=== PATIENT | female | born 1980 | race Asian ===

== ENCOUNTER 2021-05-23 14:20 | Emergency (ER) | payer BC ==
[~2021-05-23] VITALS: Ht 149.9 cm; Wt 59.0 kg
[2021-05-23 15:50] VITALS: BP 105/66
--- NOTE | 2021-05-23 16:15 | NUR ---
FINISH REMOVER AT BEDSIDE
--- NOTE | 2021-05-23 17:24 | NUR ---
Patient discharged to home in stable condition. Written and verbal after care instructions given. Patient verbalizes understanding of instruction.
== END 2021-05-23 17:25 | disposition home or self-care (01) ==
LOC: ER 14:20
DX: S16.1XXA Strain of muscle, fascia and tendon at neck level, initial encounter (principal); J45.909 Unspecified asthma, uncomplicated; V43.52XA Car driver injured in collision with other type car in traffic accident, initial encounter; Y93.89 Activity, other specified; Y92.89 Other specified places as the place of occurrence of the external cause; Y99.8 Other external cause status
CPT/HCPCS: 71045-TC